=== PATIENT | female | born 1955 | race Caucasian/White ===

== ENCOUNTER 2021-12-19 07:18 | Outpatient (CLI) | payer MEDICARE, SELFPAY ==
[2021-12-19 09:05] LABS: Alanine Aminotransferase 18 U/L (6-35); Albumin Level 4.1 g/dL (3.5-5.1); Alkaline Phosphatase 122 U/L (38-126); Anion Gap 9 mmol/L (8-16); Aspartate Amino Transferase 22 U/L (14-36); Bilirubin,Total 0.6 mg/dL (0.2-1.3); Blood Urea Nitrogen 14 mg/dL (7-17); Calcium 9.2 mg/dL (8.4-10.2); Carbon Dioxide 25 mmol/L (22-30); Chloride 104 mmol/L (98-107); Cholesterol 153 mg/dL (0-200); Creatine Kinase 98 U/L (30-135); Estimated Glomerular Filt Rate 45; Glucose 121 mg/dL (65-110); HDL Direct 36 mg/dL; Potassium 4.1 mmol/L (3.4-5.0); Sodium 138 mmol/L (137-145); Triglycerides 202 mg/dL (<150)
[2021-12-19 09:16] LABS: LDL Cholesterol Direct 72 mg/dL
== END 2021-12-19 07:19 | disposition home or self-care (01) ==
PROVIDERS: PCP Family Medicine; Visit Provider Nurse Practitioner Family
DX: E78.5 Hyperlipidemia, unspecified (principal); Z79.899 Other long term (current) drug therapy
CPT/HCPCS: 36415; 80053; 80061; 82550

== ENCOUNTER 2022-10-13 06:56 | Outpatient (CLI) | payer MEDICARE, SELFPAY ==
[2022-10-13 08:11] LABS: Hematocrit 39.9 % (37.0-47.0); Hemoglobin 12.8 g/dL (12.0-15.0); Mean Corpuscular HGB Conc 32.1 g/dl (32-36); Mean Corpuscular Hemoglobin 27.2 pg (26-34); Mean Corpuscular Volume 84.7 fl (80-100); Mean Platelet Volume 9.4 fl (7.4-10.4); Platelet Count Result 214 k/mm3 (150-375); Red Blood Count 4.71 M/mm3 (4.2-5.4); Red Cell Distribution Width 16.1 % (11.5-14.5); White Blood Count 7.1 K/mm3 (4.5-10.0)
[2022-10-13 08:57] LABS: Alanine Aminotransferase 27 U/L (6-35); Albumin Level 4.3 g/dL (3.5-5.1); Alkaline Phosphatase 112 U/L (38-126); Anion Gap 8 mmol/L (8-16); Aspartate Amino Transferase 28 U/L (14-36); Bilirubin,Total 0.8 mg/dL (0.2-1.3); Blood Urea Nitrogen 12 mg/dL (7-17); Calcium 9.3 mg/dL (8.4-10.2); Carbon Dioxide 30 mmol/L (22-30); Chloride 103 mmol/L (98-107); Cholesterol 169 mg/dL (0-200); Estimated Glomerular Filt Rate 35; Glucose 115 mg/dL (65-110); HDL Direct 39 mg/dL; LDL Cholesterol Direct 85 mg/dL; Potassium 4.5 mmol/L (3.4-5.0); Sodium 141 mmol/L (137-145); Triglycerides 284 mg/dL (<150)
[2022-10-13 09:34] LABS: Hemoglobin A1C 5.9 % (<5.7)
[2022-10-13 09:37] LABS: Vitamin D 25 Hydroxy 61.3 ng/mL
== END 2022-10-13 06:57 | disposition home or self-care (01) ==
LOC: ANHLAB 06:57
PROVIDERS: PCP Family Medicine; Visit Provider Nurse Practitioner Family
DX: E78.5 Hyperlipidemia, unspecified (principal); E55.9 Vitamin D deficiency, unspecified; Z79.899 Other long term (current) drug therapy; N28.9 Disorder of kidney and ureter, unspecified; I10 Essential (primary) hypertension; R73.09 Other abnormal glucose; R53.83 Other fatigue; Z13.29 Encounter for screening for other suspected endocrine disorder; R20.0 Anesthesia of skin; R20.2 Paresthesia of skin
CPT/HCPCS: 36415; 80053; 80061; 82306; 82607; 83036; 84443; 85027

== ENCOUNTER 2022-11-16 08:39 | Outpatient (CLI) | payer MEDICARE, SELFPAY ==
[2022-11-16 09:25] LABS: Anion Gap 7 mmol/L (8-16); Blood Urea Nitrogen 17 mg/dL (7-17); Calcium 9.1 mg/dL (8.4-10.2); Carbon Dioxide 28 mmol/L (22-30); Chloride 106 mmol/L (98-107); Estimated Glomerular Filt Rate 35; Glucose 109 mg/dL (65-110); Potassium 3.6 mmol/L (3.4-5.0); Sodium 141 mmol/L (137-145)
== END 2022-11-16 08:40 | disposition home or self-care (01) ==
PROVIDERS: PCP Family Medicine; Visit Provider Family Medicine
DX: N28.9 Disorder of kidney and ureter, unspecified (principal); E53.8 Deficiency of other specified B group vitamins
CPT/HCPCS: 36415; 80048; 82607

== ENCOUNTER 2022-11-30 07:25 | Outpatient (CLI) | payer MEDICARE, SELFPAY ==
--- NOTE | ~2022-11-30 | CT_ITS ---
CT scan of the Neck Technique: 2.5 mm axial scans were obtained through the neck after intravenous administration of 75 c c Omnipaque 350. Coronal and sagittal reconstructions of the neck were obtained. Dose reduction techn ique was used on this scan by utilizing automated exposure control and iterative reconstruction techn ique. The dose-length product (DLP) was 567.14 mGy-cm. Clinical History: Right parotid tumor, swelling Findings: There is a 2.9 x 2.3 x 3.5 cm ovoid, mildly heterogeneously enhancing mass which is probably in the a nterior, superficial portion of the right parotid gland, just superficial to the right masseter muscl e. No definite pathologic lymphadenopathy seen in the neck otherwise. Parapharyngeal fat preserved bi laterally. Bilateral submandibular glands are unremarkable. Left parotid gland is unremarkable. The pharyngeal mucosal spaces appear normal. No soft tissue masses are seen in the neck. The thyroid gland appears normal. Images of the lung apices reveal no abnormalities. Impression: 2.9 x 2.3 x 3.5 cm mass which is probably in the anterior, superficial right parotid gland, as detail ed above. CT imaging features are relatively nonspecific, and both benign and malignant neoplastic le sions are within the differential diagnosis. Consider tissue sampling and/or resection. Reviewed, dictated and finalized at location . Impression: 2.9 x 2.3 x 3.5 cm mass which is probably in the anterior, superficial right pa rotid gland, as detailed above. CT imaging features are relatively nonspecific, and both benign and malignant neoplastic lesions are within the differential d iagnosis. Consider tissue sampling and/or resection.
[2022-11-30 07:47] LABS: Estimated Glomerular Filt Rate 33
== END 2022-11-30 07:26 | disposition home or self-care (01) ==
LOC: CHSIMG 07:27
PROVIDERS: PCP Family Medicine; Visit Provider Otolaryngology
DX: K11.8 Other diseases of salivary glands (principal)
CPT/HCPCS: 70491; Q9967

== ENCOUNTER 2023-07-21 14:45 | Emergency (ER) | payer MEDICARE, SELFPAY ==
[2023-07-21] VITALS (8 sets, daily range): BP systolic 121–156; BP diastolic 71–92; PULSE 83–90; RESP 12–20; TEMP 36.6–36.7; O2SAT 94–98
--- NOTE | ~2023-07-21 | XR_ITS ---
EXAMINATION: XR chest 2V DATE: 07/21/2023 16:15 INDICATION: Hemoptysis. TECHNIQUE: Frontal and lateral views of the chest were obtained. COMPARISON: None. FINDINGS: There are airspace opacities in right lower lung zone. A calcified right lung nodule is con sistent with old granulomatous disease. No pleural effusion or pneumothorax. The heart size is normal . IMPRESSION: 1. Airspace opacities in right lower lung zone, consistent with atelectasis versus pneumonia. Reviewed, dictated and finalized at location E. OPERATOR IMPRESSION: 1. Airspace opacities in right lower lung zone, consistent with atelectasis rachel mary beth pneumonia.
--- NOTE | ~2023-07-21 | CT_ITS ---
EXAMINATION: CTA chest PE protocol DATE: 07/21/2023 17:04 INDICATION: Hemoptysis. TECHNIQUE: Computed tomography angiography (CTA) of the chest was performed with 100 mL Omnipaque-350 intravenous contrast timed to evaluate the pulmonary arteries. Coronal maximum intensity projection 3D-reconstructions were created by the technologist. Automated exposure control and iterative reconst ruction technique were employed. The dose-length product was 678.86 mGy-cm. COMPARISON: Chest 2 views 07/21/2023 FINDINGS: There is mild emphysema. There is mild atelectasis bilaterally. Calcified right lung nodule s are consistent with old granulomatous disease. There is opacification of some of the right lower lo be bronchi. There is a broncholith in right lower lobe. There are airspace and groundglass opacities in right lung lower lobe. There is right hilar lymphadenopathy. The heart size is normal. No pericard ial effusion. There is no pulmonary embolus. Calcifications in the spleen are consistent with old gra nulomatous disease. There is severe thoracic spondylosis. IMPRESSION: 1. No pulmonary embolus. 2. Right lower lobe pneumonia. 3. Right lower lobe broncholith. 4. Mild emphysema. 5. Right hilar lymphadenopathy, likely reactive. Reviewed, dictated and finalized at location E. [facility] REPRESENTATIVE
--- NOTE | 2023-07-21 15:22 | ED.SOB ---
HPI - SOB/Dyspnea General Chief Complaint: GI Bleed Stated Complaint: coughing up blood Time Seen by Provider: 07/21/23 15:14 Source: patient and family () Mode of arrival: ambulatory Limitations: no limitations History of Present Illness HPI Narrative: (Disregard initial chief complaint; patient denies GI bleeding) Patient presents with concern for hemoptysis. She has been coughing for several days started coughing violently in the she noted she began to cough up blood. It is bright red and then occasionally snot/phlegm. She has a chronic cough. She is not on any anticoagulation. This did occur before approximately 3 months ago she was diagnosed with a pneumonia (based on symptoms) for which she was placed on Augmentin. Based on her symptoms her primary care physician Dr. Kingsley nurse practitioner Lan did prescribe her another round of Augmentin which she started taking today and ordered an outpatient chest x-ray to be performed which patient was planning on doing on Sunday she worked today and tomorrow. Former smoker who quit cigarettes in 2011 and started vaping but quit that 2 years ago. No history DVT PE. She denies chest pain. She has shortness of breath when she coughs but not otherwise or rest. Denies any abdominal pain extremity edema hematemesis, hematuria in hematochezia. She recently stopped taking all of her medications including her allergy medications. Related Data Home Medications Medication Instructions Recorded Confirmed fluticasone propionate 50 1 spray intranasal DAILY 08/30/21 11/27/22 mcg/actuation nasal spray,suspension L.acidoph, paracasei,B. lactis 10 cell PO 12/20/21 11/27/22 billion cell capsule (Digestive Advantage Advanced Probiotic) cholecalciferol (vitamin D3) 125 125 mcg PO DAILY 10/16/22 11/27/22 mcg (5,000 unit) tablet (Vitamin D3) levocetirizine 5 mg tablet (Xyzal) 5 mg PO DAILY 10/16/22 11/27/22 Allergies Allergy/AdvReac Type Severity Reaction Status Date / Time paroxetine [From Paxil] Allergy Unknown Verified 11/27/22 14:39 escitalopram [From Lexapro] AdvReac Intermediate rapid Verified 11/27/22 14:39 heart beat hydrocodone [From Vicodin] AdvReac Mild rapid Verified 11/27/22 14:39 heart beat [facility] Past Medical History Medical History (Updated 07/21/23 @ 17:17 by Abby Singh MD) BMI 36.0-36.9,adult BMI over 35 Congenital branchial cleft cyst High cholesterol Hypertension Low vitamin B12 level Positive colorectal cancer screening using Cologuard test Screen for colon cancer Surgical History Surgical History H/O: hysterectomy Family History Family History Father Allergies Skin cancer Mother Colon cancer Arthritis Sibling , Covid-19 Acute myocardial infarction Sibling Diabetes mellitus Sibling Rheumatoid arthritis Social History Social History (Updated 07/21/23 @ 22:22 by Abby Singh MD) Smoking status: Former smoker (vapes) Tobacco type: e-cigarettes/vaping Second hand tobacco smoke exposure: No Smoking end date: 05/14/11 Alcohol intake: never Alcohol use details: Pt breaks out after drinking alcohol. Substance use: never Substance use type: does not use Lack of Transportation: No Lack of Food: Never True Current Housing: I Have Housing Concerned About Future Housing: No Difficulty Paying Gas/Electric Bills: No Difficulty Paying for Meds: No Currently Unemployed: No Education: Associate Degree Difficulty w/ Childcare or Family Care: No Living arrangements: with family Occupation/Education: occupation Additional occupation/education comments: [employer] Gender identity (if verbalized by the patient): Female Exam Narrative: GENERAL: Well-appearing, well-nourished, and in no acute distress. HEAD: Norm
--- NOTE | 2023-07-21 15:23 | ECG_ITS ---
Measurements Intervals [place] Rate: 83 P: 27 DE: 179 QRS: -54 QRSD: 118 T: 66 QT: 379 QTc: 448 Interpretive Statements SINUS RHYTHM LEFT ANTERIOR FASCICULAR BLOCK BASELINE ARTIFACT- I, II, AVR, AVL, AVF ABNORMAL ECG NO PREVIOUS ECG AVAILABLE FOR COMPARISON Electronically Signed On 07-22-2023 9:38:41 CDT by Jorge Vines D.O.
[2023-07-21 15:36] LABS: Basophils Absolute Auto 0.1 K/mm3 (0.0-0.1); Basophils Percent Auto 0.6 % (0.2-1.2); Eosinophils Absolute Auto 0.3 K/mm3 (0-0.3); Eosinophils Percent Auto 2.5 % (0-4.4); Hematocrit 40.1 % (37.0-47.0); Hemoglobin 12.5 g/dL (12.0-15.0); Immature Granulocyte Absolute 0.05 K/mm3 (0.00-0.031); Immature Granulocyte Percent A 0.5 % (0-0.5); Lymphocytes Absolute Auto 0.79 K/mm3 (0.9-3.2); Lymphocytes Percent Auto 7.8 % (18.3-44.2); Mean Corpuscular HGB Conc 31.2 g/dl (32-36); Mean Corpuscular Volume 83.5 fl (80-100); Monocytes Absolute Auto 0.5 K/mm3 (0.1-0.6); Monocytes Percent Auto 5.1 % (2.6-8.5); Neutrophils Absolute Auto 8.5 K/mm3 (1.3-6.7); Neutrophils Percent Auto 83.5 % (45.5-73.1); Platelet Count Result 214 k/mm3 (150-375); Red Cell Distribution Width 15.9 % (11.5-14.5); White Blood Count 10.1 K/mm3 (4.5-10.0)
[2023-07-21 15:46] LABS: Alanine Aminotransferase 15 U/L (6-35); Albumin Level 4.3 g/dL (3.5-5.1); Alkaline Phosphatase 115 U/L (38-126); Anion Gap 10 mmol/L (8-16); Aspartate Amino Transferase 19 U/L (14-36); Bilirubin,Total 0.6 mg/dL (0.2-1.3); Blood Urea Nitrogen 17 mg/dL (7-17); Calcium 9.7 mg/dL (8.4-10.2); Carbon Dioxide 25 mmol/L (22-30); Chloride 105 mmol/L (98-107); Estimated CRCL calculation 46 ml/min; Estimated Glomerular Filt Rate 41; Glucose 125 mg/dL (65-110); Potassium 3.4 mmol/L (3.4-5.0); Sodium 140 mmol/L (137-145)
[2023-07-21 15:49] LABS: Partial Thromboplastin Time 32.2 SECONDS (22.3-36.8)
[2023-07-21 15:50] LABS: Alveolar/Arterial O2 Gradient 38.9 mmHg; Base Excess ABG 0.7 mEq/l (+/-2.0); Device ROOM AIR; Fractional Inspired Oxygen 21 %; HCO3 ABG 22.4 mEq/l (22.0-26.0); Modified Allen's Test Pass; Oxygen Content ABG 17.2 %vol (16.0-22.0); Oxygen Saturation ABG 96.8 % (95.0-100.0); Oxyhemoglobin 95.2 % THb (90.0-100.0); PCO2 ABG 27.7 mmHg (35.0-45.0); PO2 ABG 77.7 mmHg (80.0-100.0); Site Drawn LEFT RADIAL; Total Hemoglobin 12.8 g/dL (12.0-18.0); pH ABG 7.526 (7.350-7.450)
[2023-07-21 15:54] LABS: NT Pro B Type Natriuretic Pept 42 pg/mL (19.9-100)
[2023-07-21 15:55] LABS: D Dimer 1.02 ug/mL (<0.48)
[2023-07-21 16:12] LABS: Influenza A QL RT-PCR Negative (Negative); Influenza B QL RT-PCR Negative (Negative); RSV RNA, RT-PCR Negative (Negative); SARS-CoV-2 RNA PCR Negative (Negative)
[2023-07-21] MEDS: SODIUM CHLORIDE 0.9% IV 1,000 ML 999 ML IV CONT (17:56)
== END 2023-07-21 18:23 | disposition home or self-care (01) ==
PROVIDERS: Emergency Provider Student in an Organized Health Care Education/Training Program; PCP Family Medicine
DX: I44.4 Left anterior fascicular block (principal); J18.9 Pneumonia, unspecified organism; I10 Essential (primary) hypertension; Z87.891 Personal history of nicotine dependence; Z20.822 Contact with and (suspected) exposure to COVID-19
CPT/HCPCS: 36415; 36600; 71046; 71275; 80053; 82805; 83735; 83880; 85025; 85380; 85610; 85730; 87637; 93005; 99284; J7030; Q9967

== ENCOUNTER 2024-04-22 10:02 | Outpatient (CLI) | payer MEDICARE, SELFPAY ==
--- NOTE | ~2024-04-22 | XR_ITS ---
Clinical Indication: Cough PA and lateral views of the chest: Comparison: 07/21/2023 Findings: Stable calcified medial right basilar pulmonary nodule. The lungs are otherwise clear, with out evidence of focal consolidation or pleural effusion. Cardiomediastinal silhouette is within norm al limits. Bones and soft tissues are unremarkable. Impression: No acute abnormality. Stable large calcified medial right basilar granuloma. Reviewed, dictated and finalized at location . MING COACH OR INSTRUCTOR Impression: No acute abnormality. Stable large calcified medial right basilar granuloma.
[2024-04-22 10:25] LABS: Basophils Absolute Auto 0.06 K/mm3 (0.00-0.10); Basophils Percent Auto 0.6 % (0.0-1.0); Eosinophils Absolute Auto 0.94 K/mm3 (0.02-0.50); Hematocrit 39.2 % (35.0-42.0); Hemoglobin 12.5 g/dL (11.7-13.8); Immature Granulocyte Absolute 0.05 K/mm3 (0.00-0.00); Immature Granulocyte Percent A 0.5 % (0.0-0.0); Lymphocytes Absolute Auto 1.31 K/mm3 (1.10-4.50); Mean Corpuscular HGB Conc 31.9 g/dL (32-36); Mean Corpuscular Hemoglobin 25.9 pg (27.0-31.0); Mean Corpuscular Volume 81.2 fL (78.0-102.0); Mean Platelet Volume 9.5 fl (9.2-11.8); Monocytes Absolute Auto 0.64 K/mm3 (0.10-0.90); Monocytes Percent Auto 6.8 % (2.0-11.0); Neutrophils Absolute Auto 6.38 K/mm3 (1.70-7.20); Neutrophils Percent Auto 68.1 % (50.0-70.0); Platelet Count Result 228 K/mm3 (150-420); Red Blood Count 4.83 M/mm3 (4.20-5.40); Red Cell Distribution Width 15.9 % (11.6-14.4); White Blood Count 9.4 K/mm3 (4.8-10.8)
[2024-04-22 11:30] LABS: Alanine Aminotransferase 26 U/L (14-59); Albumin Level 3.5 g/dL (3.4-5.0); Alkaline Phosphatase 123 U/L (46-116); Anion Gap 10 mmol/L (4-12); Aspartate Amino Transferase 19 U/L (15-37); Bilirubin,Total 0.5 mg/dL (0.00-1.00); Blood Urea Nitrogen 11 mg/dL (7-18); Calcium 9.1 mg/dL (8.5-10.1); Carbon Dioxide 29 mmol/L (21-32); Chloride 104 mmol/L (98-108); Cholesterol 164 mg/dL (0-200); Estimated Glomerular Filt Rate 38; Glucose 101 mg/dL (70-99); HDL Direct 45 mg/dL (40-60); LDL Cholesterol Calculated 67 mg/dL (<130); Osmolality Calculated 295 mOsm/kg (285-295); Sodium 143 mmol/L (136-145); Total Protein 7.3 g/dL (6.4-8.2); Triglycerides 262 mg/dL (0-150)
[2024-04-22 11:31] LABS: Thyroid Stimulating Hormone Reflex 0.74 u/IU/mL (0.36-3.74)
[2024-04-25 12:58] LABS: Vitamin D 1,25 (OH)2 Total 47 pg/mL (18-72); Vitamin D2 1,25 (OH)2 <8 pg/mL; Vitamin D3 1,25 (OH)2 47 pg/mL
== END 2024-04-22 10:03 | disposition home or self-care (01) ==
LOC: CHSLAB 10:03
PROVIDERS: PCP Family Medicine; Visit Provider Family Medicine
DX: E03.9 Hypothyroidism, unspecified (principal); Z13.29 Encounter for screening for other suspected endocrine disorder; E55.9 Vitamin D deficiency, unspecified; J43.9 Emphysema, unspecified; R91.8 Other nonspecific abnormal finding of lung field
CPT/HCPCS: 36415; 71046; 80053; 80061; 82652; 84443; 85025

== ENCOUNTER 2024-05-02 11:23 | Outpatient (CLI) | payer MEDICARE, SELFPAY ==
[2024-05-02 12:10] LABS: SARS-CoV-2 RNA PCR Negative (Negative)
[2024-05-02 12:17] LABS: Influenza A QL RT-PCR Negative (Negative); Influenza B QL RT-PCR Negative (Negative); RSV RNA, RT-PCR Negative (Negative)
== END 2024-05-02 11:24 | disposition home or self-care (01) ==
LOC: CHSLAB 11:24
PROVIDERS: PCP Family Medicine; Visit Provider Family Medicine
DX: J32.9 Chronic sinusitis, unspecified (principal); Z20.822 Contact with and (suspected) exposure to COVID-19
CPT/HCPCS: 87637

== ENCOUNTER 2024-09-25 10:08 | Outpatient (CLI) | payer MEDICARE, SELFPAY ==
--- NOTE | ~2024-09-25 | XR_ITS ---
XR finger 1st RT min 2V 09/25/2024 10:26 Indication: Right first finger pain Procedure: 3 views right first finger Comparison: No prior studies for comparison. Findings: There is polyarticular osteoarthritis of the first digit including the carpometacarpal join t. No fracture or traumatic malalignment. No erosive changes. No focal soft tissue abnormality. 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 Reviewed, dictated and finalized at location A. 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
--- OUTSIDE RECORDS SUMMARY | 2024-09-25 10:14 | XMS_ITS | Clinical Summary ---
Author Organization [facility] Address [address] [place] [address] Care Team Providers Care Rigging Helper Name Role Phone Yuan Jimenez MD Primary Care Provider [phone] Source Comments [facility],non-owned Affiliates and Associated Physician Practices is amultiple site organization consisting of ambulatory clinics and hospital sitesin [place], [place], [place] and [place]. This disclosure is being madepursuant to the Care Everywhere program and may not contain all information available regarding this patient. Last updated 18.[facility] Allergies Active Allergy Reactions Criticality Noted Date Comments Alcohol Rash Medium 12/11/2022 All Alcohol drink products give her a rash Chlorhexidine Itching Medium 12/25/2022 Escitalopram Headache 12/06/2022 Hydrocodone-Acetaminophe n Itching,Palpitations High 12/06/2022 Paroxetine Itching 12/06/2022 Medications * Be aware that medications may not be up to date on this document. Alwaysverify current medications with the patient. atorvastatin (Lipitor) 20 MG tablet Take 1 (one) tablet by mouth once daily 3 Active BinaxNOW COVID-19 Ag Home Test KIT TEST DIRECTED TODAY 3 Active triamcinolone acetonide (Kenalog) 0.1 % ointment Apply 1 Application to affected area as needed 3 Active Probiotic Product (Probiotic-10 Ultimate) CAPS Take 1 capsule by mouth once daily Active Cholecalcifero l (Vitamin D3) 1.25 MG (87923 UT) TABS Take 1 (one) tablet by mouth once daily Active loratadine (Claritin) 10 MG tablet Active acetaminophen (Tylenol) 325 MG tablet Take 2 (two) tablets by mouth every 6 hours as needed for Fever or Pain Maximum allowable Acetaminophen amount = 4 Grams (4000 mg) / 24 hours. 60 tablet 1 3 Active Additional Information Patient taking differently: 500 mgOral2 TIMES DAILY, Maximum allowable Acetaminophen amount = 4 Grams (4000 mg) / 24 hours., Reported on 01/10/2023 oxyCODONE, immediate release, (Roxicodone) 5 MG tabletIndicati ons:Parotid neoplasm Take 1 (one) tablet by mouth every 6 hours as needed for Pain 12 tablet 3 Active Additional Information Patient not taking.Reported on 01/10/2023 ibuprofen (Motrin) 400 MG tablet Take 1 (one) tablet by mouth every 6 hours as needed for Pain 60 tablet 3 Active docusate sodium (Colace) 100 MG capsule Take 1 (one) capsule by mouth 2 times daily as needed for Constipation (If experiencing constipation while on narcotics) 30 capsule 3 Active Additional Information Patient not taking.Reported on 01/10/2023 Active Problems No known active problems Resolved Problems Problem Noted Date Diagnosed Date Resolved Date Parotid neoplasm 12/25/2022 02/09/2023 Immunizations Immunization Administration Dates Next Due INFLUENZA VACCINE 01/27/2023 Social History Tobacco Use Types Packs/Day Years Used Date Smoking Tobacco: Former Cigarettes 1 38 1 974 - 2012 Smokeless Tobacco: Never Tobacco Cessation:Counseling Given: Not Answered Alcohol Use Standard Drinks/Week Comments Not Currently 0 (1 standard drink = 0.6 oz pur e alcohol) Allergic to ETOH Comments Unknown Sex and Gender Information Value Date Recorded Sex Assigned at Female 12/11/2022 3:23 PM CDT Legal Sex Female 10:33 AM CDT Gender Identity Female 12/11/2022 3:23 PM CDT Sexual Orientation Straight 12/11/2022 3: 23 PM CDT Last Filed Vital Signs Vital Sign Reading Time Taken Comments Blood Pressure 149/90 02/09/2023 10:22 AM CDT Pulse 74 02/09/2023 10:22 AM CDT Temperature 36.8 C (98.2 F) 12/26/2022 8:10 AM CDT Respiratory Rate 18 12/26/2022 3:56 AM CDT Oxygen Saturation 93% 12/26/2022 8:10 AM CDT Inhaled Oxygen Concentration - - Weight 106.6 kg (235 lb) 02/09/2023 10:22 AM CDT Height 170.2 cm (5' 7 ) 02/09/2023 10:22 AM CDT Body Mass Index 36.81 02/09/2023 10:22 AM CDT Plan of Treatment Health Maintenance Due Date Last Done Comments BONE DENSITY TESTING 1955 COLOGUARD (AGES 45-75) - COL ON CA SCREENING 1956 COLON MONITORING 1956 COLONOSCOPY - COLON CA SCREENING 1956 CT COLONOGRAPHY - COLON CA SCREENING 1955 Colorectal Cancer Screening 1955 FIT - COLON CA SCREENING 1956 FLEX SIG - COLON CA SCREENING 1956 MAMMOGRAM 1956 HEPATITIS C SCREENING 04/03/1974 DTAP/TDAP/TD VACCINES (1 - Tdap) 1975 LUNG CANCER SCREENING 2006 PNEUMOCOCCAL VACCINE 50+ (1 of 1 - PCV) 2006 ZOSTER VACCINE (1 of 2) 2006 COVID-19 VACCINE ( - 2023-2 5 season) 2024 DEPRESSION SCREENING 05/14/2024 MEDICARE AWV CALENDAR YEAR 2024 INFLUENZA VACCINE (Season Ended) 2025 01/28/20 SCREENING FOR DIABETES 12/11/2025 12/11/2022 Respiratory Syncytial Virus (RSV) Vaccine Pt: or over 60 yrs (1 - 1-dose 75+ series) 2031 HEPATITIS B VACCINE Aged Out No longe r eligible based on patient's age to complete this topic HIB VACCINE Aged Out No longer eligi ble based on patient's age to complete this topic HPV VACCINE Aged Out No longer eligi ble based on patient's age to complete this topic MENINGOCOCCAL (Group B) VACC INE SHARED DECISION-MAKING Aged Out No longer eligibl e based on patient's age to complete this topic MENINGOCOCCAL GROUPS A/C/Y/W VACCINE Aged Out No longer eligible b ased on patient's age to complete this topic Procedures Procedure Name Priority Date/Time Associated Diagnosis Comments COMPREHENSIVE METABOLIC PANEL Routine 12/11/2022 12:14 PM CDT Preoperative examination from Last 3 Months or Most Recently Relevant to Health Maintenance Results * (ABNORMAL) COMPREHENSIVE METABOLIC PANEL (12/11/2022 12:14 PM CDT) BUN 14 7 - 26 mg/dL 12/11/2022 1:30 PM [facility] Creatinine 1.40(H) 0.56 - 0.96 mg/dL 12/11/2022 1:30 PM [facility] Sodium 140 136 - 145 mmol/L 12/11/2022 1:30 PM [facility] Potassium 4.1 3.5 - 4.5 mmol/L 12/11/2022 1:30 PM [facility] Chloride 105 98 - 107 mmol/L 12/11/2022 1:30 PM [facility] CO2 27 22 - 29 mmol/L 12/11/2022 1:30 PM [facility] Glucose 81 70 - 115 mg/dL 12/11/2022 1:30 PM [facility] Calcium 10.1 8.4 - 10.2 mg/dL 12/11/2022 1:30 PM [facility] Protein Total 7.8 6.0 - 8.3 g/dL 12/11/2022 1:30 PM [facility] Albumin 3.6 3.4 - 5.0 g/dL 12/11/2022 1:30 PM [facility] Bilirubin Total 0.6 0.2 - 1.2 mg/dL 12/11/2022 1:30 PM [facility] Alkaline Phosphatase 106 40 - 150 U/L 12/11/2022 1:30 PM [facility] ALT 19 5 - 55 U/L 12/11/2022 1:30 PM [facility] AST 17 5 - 34 U/L 12/11/2022 1:30 PM [facility] Anion Gap 12 8 - 18 12/11/2022 1:30 PM CDT [facility] BUN/Creatinine Ratio 10 7 - 23 12/11/2022 1:30 PM CDT [facility] Osmolality Calculated 290 270 - 300 mOsm/kg 12/11/2022 1:30 PM CDT [facility] Albumin/Globulin Ratio 0.9(L) 1.1 - 2.3 12/11/2022 1:30 PM CDT [facility] eGFR by CKD-EPI 41(L) >=90 mL/min/1.7 3 m2 12/11/2022 1:30 PM CDT [facility] Blood BLOOD SPECIMEN / Unknown Lab Venipuncture / Unknown 12/11/2022 12:14 PM CDT 12/11/2022 1:04 PM CDT us Claude Abel MD LAB - CHEMISTRY ORDERABLES Final Result [facility] [address] [place] [address], [facility] [phone] from Last 3 Months or Most Recently Relevant to Health Maintenance Insurance [facility] MANAGED MEDICARE ADV Advance Directives * Full Code (Latest Code Status on File) Date Activated Date Inactivated Comments 12/25/2022 6:56 PM 12/26/2022 12:19 PM Care Teams Rigging Helper Relationship Specialty Start Date End Date Yuan Jimenez MD [address] [place] [address] PCP - General Family Medicine 12/04/22
--- OUTSIDE RECORDS SUMMARY | 2024-09-25 10:14 | XMS_ITS | Clinical Summary ---
Author Organization [facility] Address [address] [place] [address] Care Team Providers Care Roofer Applicator Name Role Phone Yuan Jimenez MD Primary Care Provider [phone] Allergies Active Allergy Reactions Criticality Noted Date Comments Alcohol Rash Medium 12/11/2022 All Alcohol drink products give her a rash Chlorhexidine Itching Medium 12/25/2022 Hydrocodone-Acetaminoph en Itching,Palpitations High 12/06/2022 Escitalopram Palpitations Low 08/23/2023 Paroxetine Itching 12/06/2022 Medications atorvastatin (LIPITOR) 20 MG tablet Take 1 tablet (20 mg total) by mouth nightly at bedtime. Active albuterol sulfate HFA 108 (90 Base) MCG/ACT inhaler Inhale 2 puffs into the lungs every 6 (six) hours as needed. 03/01/2023 Active cyclobenzaprine (FLEXERIL) 5 MG tablet Take 1 tablet (5 mg total) by mouth 2 (two) times daily as needed. 05/15/2023 Active sertraline (ZOLOFT) 100 MG tablet Take 1 tablet (100 mg total) by mouth daily. 04/17/2023 Active Active Problems No known active problems Social History Tobacco Use Types Packs/Day Years Used Date Smoking Tobacco: Never Smokeless Tobacco: Never Tobacco Cessation:Counseling Given: Not Answered Alcohol Use Standard Drinks/Week Comments Never 0 (1 standard drink = 0.6 oz pur e alcohol) Comments No Sex and Gender Information Value Date Recorded Sex Assigned at Not on file Legal Sex Female 5:58 PM CHEMIST HELPER Gender Identity Not on file Sexual Orientation Not on file Last Filed Vital Signs Vital Sign Reading Time Taken Comments Blood Pressure 147/69 09/26/2023 11:09 AM CDT Pulse 73 09/26/2023 11:09 AM CDT Temperature 36.2 C (97.1 F) 09/26/2023 11:09 AM CDT Respiratory Rate 16 09/26/2023 11:09 AM CDT Oxygen Saturation 97% 09/26/2023 11:09 AM CDT Inhaled Oxygen Concentration - - Weight 105.2 kg (232 lb) 09/19/2023 1:06 PM CDT Height 170.2 cm (5' 7 ) 09/19/2023 1:06 PM CDT Body Mass Index 36.34 09/19/2023 1:06 PM CDT Plan of Treatment Health Maintenance Due Date Last Done Comments Colorectal Cancer Screening Colonoscopy (10 Years) 1956 Hepatitis C 1974 DTaP, Tdap and Td Vaccines (1 - Tdap) 1975 Mammogram Screening 1996 Annual Medicare Wellness Visit 2021 Dexa Scan (General) 2021 COVID-19 Vaccine ( season) 2024 02/16/2023, 02/20/2022, 02/13/2021, Additional history exists Pneumococcal Vaccine: 50+ Years Completed 01/27/2023 Zoster Vaccines Completed 04/09/2023, 01/27/2023 RSV Immunization or 60+ Years Completed 05/11/2023 Meningococcal B Vaccine Aged Out No l onger eligible based on patient's age to complete this topic Meningococcal Vaccine Aged Out No ezequiel char eligible based on patient's age to complete this topic RSV Immunizations Under 20 Months Aged Out No longer eligible based on patient's age to complete this topic Medical Devices Implanted Type Area Electronics Maintenance Technician Device Identifier Shelf Expiration Date Model / Serial / Lot Tecnis Simplicity Delivery System Implanted:Qty: 1 on 08/29/2023 by Loren Devine MD at [facility] Right: Eye [employer] 06/20/2025 DCB00 / [id number] / [id number] Technis Simplicity Delivery System Implanted:Qty: 1 on 09/26/2023 by Loren Devine MD at [facility] Left: Eye [employer] 01/25/2026 DCB00 / [id number] / [id number] Insurance [facility] Care Teams Roofer Applicator Relationship Specialty Start Date End Date Yuan Jimenez MD [address] [place] [address] PCP - General FAMILY PRACTICE 08/29/23
--- OUTSIDE RECORDS SUMMARY | 2024-09-25 10:14 | XMS_ITS | Encounter Summary ---
Author Organization [facility] Address [address] [place] [address] Care Team Providers Care Assistant Press Operator Offset Name Role Phone Yuan Jimenez MD Primary Care Provider [phone] Encounter Details Date Type Department Care Team (Late st Contact Info) Description 10/19/2018 Abstract [facility]FL CONVERSION [address] [place] [address] , Generic Conversion, Social History Tobacco Use Types Packs/Day Years Used Date Smoking Tobacco: Never Assessed Comments Unknown Sex and Gender Information Value Date Recorded Sex Assigned at Not on file 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
== END 2024-09-25 10:09 | disposition home or self-care (01) ==
LOC: CHSIMG 10:12
PROVIDERS: PCP Family Medicine; Visit Provider Family Medicine
DX: M19.041 Primary osteoarthritis, right hand (principal)
CPT/HCPCS: 73140

== ENCOUNTER 2024-11-15 07:01 | Emergency (ER) | payer MEDICARE, SELFPAY ==
[2024-11-15] VITALS (7 sets, daily range): BP systolic 106–139; BP diastolic 58–72; PULSE 75–88; RESP 17–20; TEMP 36.6–37.1; O2SAT 88–92
--- NOTE | ~2024-11-15 | CT_ITS ---
EXAMINATION: CTA chest PE protocol DATE: 11/15/2024 09:10 CDT INDICATION: Cough, fever and right-sided chest pain TECHNIQUE: Computed tomographic angiography (CTA) of the chest was performed with 100 mL Omnipaque-35 0 intravenous contrast. The dose-length product was 746.32 mGy-cm. Maximum intensity projection 3D-re constructions of the aorta and other arteries were constructed by the technologist on a separate work station. COMPARISON: 07/21/2023 FINDINGS/OBSERVATIONS: PULMONARY ARTERIES: No filling defect is identified within the main or proximal pulmonary artery. The main pulmonary artery is not enlarged. THORACIC AORTA: No aneurysmal dilatation or dissection is present. The great vessels are intact LUNGS: Moderate right-sided pleural effusion with adjacent compressive atelectasis. Bulky calcification within the right lung base, unchanged from prior. Left basilar atelectasis. No discrete consolidation is appreciated. MEDIASTINUM: No morphologically suspicious or pathologically enlarged lymph nodes are identified with in the mediastinum or bilateral axilla. Decrease in size of the right hilar lymph node when compared with previous examination. BONES OF THE CHEST: No acute fracture. No significant degenerative disease. No lytic or blastic lesions. HEART: The heart is of normal size, without pericardial effusion. IMPRESSION: No pulmonary embolus. No thoracic aortic dissection. Moderate right-sided pleural effusion with adjacent compressive atelectasis and a bulky calcification within the right lung base. Left basilar atelectasis without discrete consolidation detected bilaterally. Reviewed, dictated and finalized at location A.
--- NOTE | ~2024-11-15 | XR_ITS ---
CHEST RADIOGRAPH CLINICAL HISTORY: cough, fever, right chest pain . COMPARISON: 04/22/2024 TECHNIQUE: Single portable view of the chest. FINDINGS Small hiatal hernia. The remainder of the cardiomediastinal silhouette is enlarged, unchanged, and otherwise unremarkable. Moderate right and small left-sided pleural effusion. Increased interstitial markings are identified bilaterally, findings suggesting moderate pulmonary va scular congestion. The remainder the lungs are clear. IMPRESSION: Moderate pulmonary vascular congestion with a moderate right and small left-sided pleural effusion. Reviewed, dictated and finalized at location A. IMPRESSION: Moderate pulmonary vascular congestion with a moderate right and small left-shruthi ed pleural effusion.
--- NOTE | 2024-11-15 07:05 | ED.CHESTPAIN ---
HPI - Chest Pain General Chief Complaint: Upper Respiratory Infection Stated Complaint: rt. side pain Time Seen by Provider: 11/15/24 07:05 Source: patient Mode of arrival: ambulatory Limitations: no limitations History of Present Illness HPI narrative: 69-year-old female, smoker with a history of hypertension, dyslipidemia, CKD, COPD presents to the ED with a 2 day history of -- right lower chest wall pain which is made worse by deep breathing and coughing -- cough with purulent sputum no shortness of breath no nausea/vomiting / abdominal pain / diarrhea. MD complaint: chest pain Onset (ago): day(s) ( Two days) Timing of current episode: episodic Prior episodes: No Pain location: right chest Pain radiation: none Quality: sharp Relieving factors: nothing and rest Exacerbating factors: inspiration Associated symptoms: cough Treatment prior to arrival: none Risk Factors Coronary artery disease risk factors: smoking history, hyperlipidemia and hypertension Thoracic aortic dissection risk factors: longstanding hypertension Related Data Home Medications ?Medication ?Instructions ?Recorded ?Confirmed ?Last Taken ?Type fluticasone propionate 50 1 spray intranasal DAILY 08/30/21 09/25/24 Unknown History mcg/actuation nasal spray,suspension L.acidoph,paracasei,B.animalis 10 cell PO 12/20/21 09/25/24 Unknown History billion cell capsule (Digestive Advantage Advanced Probiotic) levocetirizine 5 mg tablet (Xyzal) 5 mg PO DAILY 10/16/22 09/25/24 Unknown History Allergies Allergy/AdvReac Type Severity Reaction Status Date / Time paroxetine (From Paxil) Allergy Unknown Verified 09/25/24 09:45 escitalopram (From Lexapro) AdvReac Intermediate rapid Verified 09/25/24 09:45 heart beat hydrocodone (From Vicodin) AdvReac Mild rapid Verified 09/25/24 09:45 heart beat Review of Systems Review of Systems: All systems reviewed & are unremarkable except as noted in HPI and below Constitutional: Constitutional: Reports as per HPI and Reports no additional constitutional complaints Eyes: Eyes: Reports as per HPI and Reports no additional eye complaints ENT: Reports system reviewed and no additional complaints, except as documented and Reports as per HPI Cardiovascular: Cardiovascular: Reports as per HPI, Reports no additional cardiovascular complaints and Reports chest pain Respiratory: Respiratory: Reports as per HPI, Reports no additional respiratory complaints and Reports cough Gastrointestinal: Gastrointestinal: Reports as per HPI and Reports no additional gastrointestinal complaints Genitourinary: Genitourinary: Reports no additional female genitourinary complaints and Reports as per HPI Musculoskeletal: Musculoskeletal: Reports no additional musculoskeletal complaints and Reports as per HPI Integumentary/Breasts: Skin/Breast: Reports system reviewed and no additional complaints, except as docu and Reports as per HPI Neurologic: Reports system reviewed and no additional complaints, except as documented and Reports as per HPI Psychiatric: Psychiatric: Reports no additional psychiatric complaints and Reports as per HPI Endocrine: Endocrine: Reports no additional endocrine complaints and Reports as per HPI Hematologic/Lymphatic: Hematologic/Lymphatic: Reports no additional hematologic/lymphatic complaints and Reports as per HPI Allergic/Immunologic: Allergic/Immunologic: Reports no additional allergic/immunologic complaints and Reports as per HPI [facility] Past Medical History Medical History Positive colorectal cancer screening using Cologuard test Screen for colon cancer Low vitamin B12 level BMI 36.0-36.9,adult 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 Substance use: never Substance use type: does not use Lack of Transportation: No Lack of Food: Never True Current Housing: I Have Housing Concerned About Future Housing: No Difficulty Paying Gas/Electric Bills: No Difficulty Paying for Meds: No Currently Unemployed: No Education: Associate Degree Difficulty w/ Childcare or Family Care: No Living arrangements: with family Occupation/Education: occupation Additional occupation/education comments: [employer] Gender identity (if verbalized by the patient): Female Exam Narrative: afebrile. Oxygen saturation 92% on room. Const: General: no acute distress Nutritional Appearance: well nourished Orientation/consciousness: patient oriented x3 Limitations: no limitations HENMT: Head: normal to inspection Ears: external ears normal Face/Nose/Sinus: Normal external nose present Face and sinus: normal facial exam Mouth: Yes Normal oral and palatal mucosa present Throat: posterior oropharynx normal Eyes: Conjunctivae: conjunctivae normal Pupils: Equal, round and reactive pupils present EOM: EOMs intact bilaterally Direct Ophthalmoscopy: no photophobia Neck: Neck: normal visual inspection, no lymphadenopathy and no meningeal signs Chest: Chest palpation & inspection: normal inspection of the chest Resp: Effort & Inspection: normal respiratory effort Auscultation: diminished lung sounds Other: Right basilar rales. Cardio: Rate: regular rate Rhythm: regular rhythm Other: Systolic murmur at the aortic area GI: GI Palp: Yes Soft to palpation Auscultation: normal bowel sounds Other: epigastric tenderness without any rigidity /rebound. : General: Yes no CVA tenderness Back/Spine/Pelvis: Back: no CVA tenderness Skin: General skin exam: normal color Rashes: no rashes Wounds: no wounds Neuro: General: patient oriented x3, moves all extremities, no meningeal signs, no focal motor deficits and CN's II-XI intact bilaterally Cranial nerves: Yes Nystagmus not present Speech: normal speech Gait exam (Neuro): Normal gait present Extrem: General: normal to inspection and no clubbing, cyanosis or edema Psych: Mental Status: mental status grossly normal Affect: normal affect Attitude: cooperative Course Course Emergency Course: Right pleuritic chest pain-- patient is afebrile but has an elevated white cell count. Patient has cough with mucopurulent sputum. Chest x-ray revealed bilateral effusions with right atelectasis. CTA of the chest was negative for PE and revealed right effusion with compressive atelectasis and calcification the right lung base. Patient had a proBNP of 260. Patient has normal troponin. EKG is unremarkable. No prior history of coronary artery disease. In view of the pleuritic chest pain, cough with mucopurulent sputum and right lower lobe infiltrate/atelectasis would treat as right lower lobe pneumonia. Would treat with Zithromax and Augmentin. CKD-- patient has a BUN/creatinine of 11/1.4. Vital Signs Vital signs: Vital Signs Oxygen Delivery Room Air 11/15/24 07:01 Temperature 36.6 C 11/15/24 07:05 Pulse Rate 88 11/15/24 07:05 Respiratory Rate 20 11/15/24 07:05 Blood Pressure 139/72 11/15/24 07:05 Pulse Oximetry 92 11/15/24 07:05 Oxygen Delivery Room Air 11/15/24 07:05 MDM - Chest Pain MDM Narrative Medical decision making narrative: Pleurisy pneumonia CKD Differential Diagnosis Differential diagnosis: Likely fracture of rib and pneumothorax Medical Records Data Attestation: I reviewed the patient's medical records. Lab Data Attestation: I reviewed the patient's lab results. 11/15/24 07:31 11/15/24 07:32 Labs: Lab Results 11/15/24 11/15/24 11/15/24 Range/Units 07:13 07:31 07:32 WBC 13.0 H (4.8-10.8) K/mm3 RBC 4.50 (4.20-5.40) M/mm3 Hgb 11.5 L (11.7-13.8) g/dL Hct 36.8 (35.0-42.0) % MCV 81.8 (78.0-102.0) fL MCH 25.6 L (27.0-31.0) pg MCHC 31.3 L (32-36) g/dL RDW 16.6 H (11.6-14.4) % Plt Count 274 (150-420) K/mm3 MPV 9.4 (9.2-11.8) fl Immature Gran % (Auto) 0.8 H (0.0-0.0) % Neut % (Auto) 86.2 H (50.0-70.0) % Lymph % (Auto) 5.6 L (18.0-42.0) % [place] % (Auto) 5.4 (2.0-11.0) % Eos % (Auto) 1.5 (1.0-6.0) % Baso % (Auto) 0.5 (0.0-1.0) % Lymph # (Auto) 0.72 L (1.10-4.50) K/mm3 [place] # (Auto) 0.70 (0.10-0.90) K/mm3 Eos # (Auto) 0.19 (0.02-0.50) K/mm3 Baso # (Auto) 0.06 (0.00-0.10) K/mm3 Abs Immat Gran (auto) 0.10 H (0.00-0.00) K/mm3 Absolute Neuts (auto) 11.18 H (1.70-7.20) K/mm3 Absolute Nucleated RBC 0.00 (0.00-0.00) K/mm3 Nucleated RBC % 0.0 (0-0.0) % PT 11.6 (9.50-12.1) Seconds INR 1.1 D-Dimer 0.98 H (0.19-0.50) mg/L Sodium 135 L (137-145) mmol/L Potassium 3.6 (3.4-5.0) mmol/L Chloride 103 (98-107) mmol/L Carbon Dioxide 26 (22-30) mmol/L Anion Gap 6 (4-12) mmol/L BUN 11 D (7-17) mg/dL Creatinine 1.40 H (0.7-1.0) mg/dL Estim Creat Clear Calc 43 ml/min Estimated GFR 37 L (59 - ) Glucose 148 H (65-110) mg/dL Calculated Osmolality 282 L (285-295) mOsm/kg Lactic Acid 1.3 (0.4-2.0) mmol/L Calcium 9.0 (8.4-10.2) mg/dL Total Bilirubin 1.2 (0.2-1.3) mg/dL AST 22 (14-36) U/L ALT 17 (6-35) U/L Alkaline Phosphatase 79 (38-126) U/L Total Creatine Kinase 118 (30-135) U/L Troponin I < 0.012 (0.000-0.034) ng/mL NT-Pro-B Natriuret Pep 262 H (19.9-100) pg/mL Total Protein 7.7 (6.3-8.2) g/dL Albumin 4.0 (3.5-5.1) g/dL Lipase 11 L (23-300) U/L Urine Color Light yellow (Yellow) Urine Appearance Clear (Clear) Urine pH 6.0 (5.0-8.0) Ur Specific [place] 1.010 (1.010-1.020) Urine Protein Negative (Negative) Urine Glucose (UA) Negative (Negative) Urine Ketones Negative (Negative) Ur Blood (Man) 1+ H (Negative) Urine Nitrate Positive H (Negative) Urine Bilirubin Negative (Negative) Urine Urobilinogen 0.2 (0.2-1.0) mg/dL Leukocyte Esterase Rfl Trace H (Negative) NEETU/UL Urine RBC 0-2 (0-2) /hpf Urine WBC 4-6 H (0-3) /hpf Ur Squamous Epith Cells Few (Few) /hpf Urine Bacteria Trace (None) /hpf Ur Oval Fat Bodies None (None) /lpf Influenza A (RT-PCR) Negative (Negative) Influenza B (RT-PCR) Negative (Negative) RSV (RT-PCR) Negative (Negative) SARS-CoV-2 RNA (RT-PCR) Negative (Negative) ECG Data EKG #1: ECG completion date: 11/15/24 ECG completion time: 07:29 Interpretation: Normal sinus rhythm. Right bundle-branch block pattern with left anterior hemiblock. No ST elevation. Discharge Plan Discharge Clinical Impression: Pleurisy Pneumonia Qualifiers: Pneumonia type: due to unspecified organism Laterality: right Lung location: lower lobe of lung Qualified Code(s): J18.9 - Pneumonia, unspecified organism CKD (chronic kidney disease) stage 3, GFR 30-59 ml/min Qualifiers: Chronic kidney disease stage 3 subtype: stage 3b (GFR 30-44) Qualified Code(s): N18.32 - Chronic kidney disease, stage 3b Patient Disposition: Home Condition: Stable Instructions: Antibiotic Form, Pleurisy (ED), Chronic Kidney Disease (ED), Community Acquired Pneumonia (ED) Patient Language: Hong [place]er Prescriptions: New amoxicillin-pot clavulanate 875-125 mg tablet 1 tablet PO Q12H Qty: 14 0RF azithromycin [Zithromax] 250 mg tablet 250 mg PO DAILY 4 Days Qty: 4 0RF Rx Instructions: start on day 2 of therapy No Action fluticasone propionate 50 mcg/actuation spray,suspension 1 spray intranasal DAILY Rx Instructions: administer into each nostril Digestive Advantage Advanced 10 billion cell capsule PO levocetirizine [Xyzal] 5 mg tablet 5 mg PO DAILY Breztri Aerosphere 160-9-4.8 mcg/actuation HFA aerosol inhaler 2 inh inhalation BID Qty: 10.7 0RF albuterol sulfate 90 mcg/actuation HFA aerosol inhaler 1 puff inhalation Q4H PRN (Reason: shortness of breath or wheezing) Qty: 8.5 2RF ipratropium bromide 42 mcg (0.06 %) spray,non-aerosol 2 spray intranasal TID Qty: 15 5RF Rx Instructions: administer into each nostril prednisone 10 mg tablet 10 mg PO DIRECTED Qty: 21 0RF Rx Instructions: 6-5-4-3-2-1 atorvastatin 20 mg tablet 20 mg PO DAILY Qty: 90 1RF Follow-up/Referrals: Tanner August DO [Primary Care Provider] - Time of Disposition: 09:40
--- OUTSIDE RECORDS SUMMARY | 2024-11-15 07:05 | XMS_ITS | Clinical Summary ---
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 Gender Identity Not on file Sexual Orientation [...] 1:06 PM CDT Height 170.2 cm (5' 7) 09/19/2023 1:06 PM CDT Body Mass Index [...] this topic Medical Devices Implanted Type Area Wall Mirror Department Supervisor Device Identifier Shelf Expiration Date Model / Serial / Lot Tecnis Simplicity Delivery System Implanted:Qty: 1 on 08/29/2023 by Loren Devine MD at [facility] Right: Eye [employer] 06/20/2025 DCB00 / [id number] / [id number] [employer] Simplicity Delivery System Implanted:Qty: 1 on 09/26/2023 by Loren Devine MD at [facility] Left: Eye [employer] 01/25/2026 DCB00 / [id number] / [id number] Insurance [facility] Care Teams Compliance Intern Relationship Specialty Start Date End Date Yuan Jimenez MD [address] [place] [place] [address] PCP - General FAMILY PRACTICE 08/29/23
--- OUTSIDE RECORDS SUMMARY | 2024-11-15 07:05 | XMS_ITS | Encounter Summary ---
Author Organization [facility] Address [address] [place] [address] Care Team Providers Care Jig Builder Helper Name Role Phone Yuan Jimenez MD Primary Care Provider [phone] Encounter Details Date Type Department Care Team (Late st Contact Info) Description 10/19/2018 Abstract SFL CONVERSION [address] [place] [address] , Generic Conversion, Social History Tobacco Use Types Packs/Day Years Used Date Smoking Tobacco: Never Assessed Comments Unknown Sex and Gender Information Value Date Recorded Sex Assigned at Not on file Legal Sex Female 5:58 PM PSYCHIATRIC NURSE PRACTITIONER Gender Identity Not on file Sexual Orientation Not on file documented as of this encounter Plan of Treatment Not on file documented as of this encounter Visit Diagnoses Not on filedocumented in this encounter Care Teams Jig Builder Helper Relationship Specialty Start Date End Date Yuan Jimenez MD [address] [address] PCP - General FAMILY PRACTICE 08/29/23 documented as of this encounter
--- OUTSIDE RECORDS SUMMARY | 2024-11-15 07:05 | XMS_ITS | Clinical Summary ---
Author Organization [facility] Address [address] [place] [address] Care Team Providers Care Moss Bleacher Name Role Phone Yuan Jimenez MD Primary Care Provider [phone] Source Comments [facility],non-owned Affiliates and Associated Physician Practices is amultiple site organization consisting of ambulatory clinics and hospital sitesin [place], [place], [place] and [place]. This disclosure is being madepursuant to the Care Everywhere program and may not contain all information available regarding this patient. Last updated 18.[facility] Allergies Active Allergy Reactions Criticality Noted Date [...] Active Cholecalcifero l (Vitamin D3) 1.25 MG (78055 UT) TABS Take 1 (one) tablet by [...] 10:22 AM CDT Height 170.2 cm (5' 7) 02/09/2023 10:22 AM CDT Body Mass Index [...] 7 - 26 mg/dL 12/11/2022 1:30 PM [facility] Creatinine 1.40(H) 0.56 - 0.96 mg/dL 12/11/2022 1:30 PM [facility] Sodium 140 136 - 145 mmol/L 12/11/2022 1:30 PM [facility] Potassium 4.1 3.5 - 4.5 mmol/L 12/11/2022 1:30 PM [facility] Chloride 105 98 - 107 mmol/L 12/11/2022 1:30 PM [facility] CO2 27 22 - 29 mmol/L 12/11/2022 1:30 PM [facility] Glucose 81 70 - 115 mg/dL 12/11/2022 1:30 PM [facility] Calcium 10.1 8.4 - 10.2 mg/dL 12/11/2022 1:30 PM [facility] Protein Total 7.8 6.0 - 8.3 g/dL 12/11/2022 1:30 PM [facility] Albumin 3.6 3.4 - 5.0 g/dL 12/11/2022 1:30 PM [facility] Bilirubin Total 0.6 0.2 - 1.2 mg/dL 12/11/2022 1:30 PM [facility] Alkaline Phosphatase 106 40 - 150 U/L 12/11/2022 1:30 PM [facility] ALT 19 5 - 55 U/L 12/11/2022 1:30 PM [facility] AST 17 5 - 34 U/L 12/11/2022 1:30 PM [facility] Anion Gap 12 8 - 18 12/11/2022 1:30 PM CDT [facility] BUN/Creatinine Ratio 10 7 - 23 12/11/2022 1:30 PM CDT [facility] Osmolality Calculated 290 270 - 300 mOsm/kg 12/11/2022 1:30 PM CDT [facility] Albumin/Globulin Ratio 0.9(L) 1.1 - 2.3 12/11/2022 1:30 PM CDT [facility] eGFR by CKD-EPI 41(L) >=90 mL/min/1.7 3 m2 12/11/2022 1:30 PM CDT [facility] Blood BLOOD SPECIMEN / Unknown Lab Venipuncture / Unknown 12/11/2022 12:14 PM CDT 12/11/2022 1:04 PM CDT us Claude Abel MD LAB - CHEMISTRY ORDERABLES Final Result [facility] [address] [place] [address], [facility] [phone] from Last 3 Months or Most Recently Relevant to Health Maintenance Insurance [facility] MANAGED MEDICARE ADV Advance Directives * Full Code (Latest Code Status on File) Date Activated Date Inactivated Comments 12/25/2022 6:56 PM 12/26/2022 12:19 PM Care Teams Moss Bleacher Relationship Specialty Start Date End Date Yuan Jimenez MD [address] [place] [address] PCP - General Family Medicine 12/04/22
--- NOTE | 2024-11-15 07:12 | ECG_ITS ---
Test Date: 2024-11-15 07:29:57 Measurements Intervals [place] Rate: 84 P: 49 MA: 174 QRS: -48 QRSD: 122 T: 63 QT: 369 QTc: 437 Interpretive Statements SINUS RHYTHM RIGHT BUNDLE BRANCH BLOCK [120+ ms QRS DURATION, UPRIGHT V1, 40+ ms S IN I/aVL/V4/V5/V6] LEFT ANTERIOR FASCICULAR BLOCK [QRS AXIS <= -45, QR IN I, RS IN II] POSSIBLE SEPTAL MYOCARDIAL INFARCTION , PROBABLY OLD [30 ms Q WAVE IN V1/V2] No previous ECG available for comparison Electronically Signed On 11-17-2024 22:35:45 CDT by Tyler Combs M.D.
--- NOTE | 2024-11-15 07:32 | PC.NURSE ---
Covid culture sent to lab
[2024-11-15 07:38] LABS: Hematocrit 36.8 % (35.0-42.0); Hemoglobin 11.5 g/dL (11.7-13.8); Immature Granulocyte Percent A 0.8 % (0.0-0.0); Lymphocytes Absolute Auto 0.72 K/mm3 (1.10-4.50); Mean Corpuscular HGB Conc 31.3 g/dL (32-36); Mean Corpuscular Hemoglobin 25.6 pg (27.0-31.0); Mean Corpuscular Volume 81.8 fL (78.0-102.0); Nucleated Red Blood Cells Absolute Auto 0.00 K/mm3 (0.00-0.00); Nucleated Red Blood Cells Perc 0.0 % (0-0.0); Platelet Count Result 274 K/mm3 (150-420); Red Blood Count 4.50 M/mm3 (4.20-5.40); White Blood Count 13.0 K/mm3 (4.8-10.8)
[2024-11-15] MEDS: ONDANSETRON HCL ODT 4 MG TABLET PO (07:45)
[2024-11-15 07:49] LABS: Alanine Aminotransferase 17 U/L (6-35); Albumin Level 4.0 g/dL (3.5-5.1); Alkaline Phosphatase 79 U/L (38-126); Anion Gap 6 mmol/L (4-12); Aspartate Amino Transferase 22 U/L (14-36); Bilirubin,Total 1.2 mg/dL (0.2-1.3); Blood Urea Nitrogen 11 mg/dL (7-17); Calcium 9.0 mg/dL (8.4-10.2); Carbon Dioxide 26 mmol/L (22-30); Chloride 103 mmol/L (98-107); Creatine Kinase 118 U/L (30-135); Estimated CRCL calculation 43 ml/min; Estimated Glomerular Filt Rate 37; Glucose 148 mg/dL (65-110); Lipase 11 U/L (23-300); Osmolality Calculated 282 mOsm/kg (285-295); Potassium 3.6 mmol/L (3.4-5.0); Sodium 135 mmol/L (137-145); Total Protein 7.7 g/dL (6.3-8.2)
[2024-11-15 07:51] LABS: INR 1.1; Prothrombin Time 11.6 Seconds (9.50-12.1)
[2024-11-15 07:58] LABS: Add Urine Microscopic? YES; Appearance Urine Clear (Clear); Glucose Urine UA Negative (Negative); Leukocyte Esterase Ur Trace LEU/UL (Negative); Nitrate Urine Positive (Negative); Specific Grav Ur 1.010 (1.010-1.020)
[2024-11-15 08:00] LABS: NT Pro B Type Natriuretic Pept 262 pg/mL (19.9-100); Troponin I < 0.012 ng/mL (0.000-0.034)
--- OUTSIDE RECORDS SUMMARY | 2024-11-15 08:04 | XMS_ITS | Clinical Summary ---
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 Gender Identity Not on file Sexual Orientation [...] this topic Medical Devices Implanted Type Area Billing Supervisor Device Identifier Shelf Expiration Date Model / Serial / Lot Tecnis Simplicity Delivery System Implanted:Qty: 1 on 08/29/2023 by Loren Devine MD at [facility] Right: Eye [employer] 06/20/2025 DCB00 / [id number] / [id number] [employer] Simplicity Delivery System Implanted:Qty: 1 on 09/26/2023 by Loren Devine MD at [facility] Left: Eye [employer] 01/25/2026 DCB00 / [id number] / [id number] Insurance [facility] Care Teams Film Casting Operator Relationship Specialty Start Date End Date Yuan Jimenez MD [address] [place] [address] PCP - General FAMILY PRACTICE 08/29/23
--- OUTSIDE RECORDS SUMMARY | 2024-11-15 08:04 | XMS_ITS | Encounter Summary ---
Author Organization [facility] Address [address] [place] [address] Care Team Providers Care Healthcare Social Worker Name Role Phone uYan Jimenez MD Primary Care Provider [phone] Encounter Details Date Type Department Care Team (Late st Contact Info) Description 10/19/2018 Abstract SFL CONVERSION [address] [place] [address] , Generic Conversion, Social History Tobacco Use Types Packs/Day Years Used Date Smoking Tobacco: Never Assessed Comments Unknown Sex and Gender Information Value Date Recorded Sex Assigned at Not on file 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
--- OUTSIDE RECORDS SUMMARY | 2024-11-15 08:04 | XMS_ITS | Clinical Summary ---
Author Organization [facility] Address [address] [place] [address] Care Team Providers Care Apparel Fashion Designer Name Role Phone Yuan Jimenez MD Primary Care Provider [phone] Source Comments [facility],non-owned Affiliates and Associated Physician Practices is amultiple site organization consisting of ambulatory clinics and hospital sitesin [place], [place], [place] and [place]. This disclosure is being madepursuant to the Care Everywhere program and may not contain all information available regarding this patient. Last updated 18.[facility] Allergies Active Allergy Reactions Criticality Noted Date [...] Active Cholecalcifero l (Vitamin D3) 1.25 MG (44422 UT) TABS Take 1 (one) tablet by [...] 7 - 23 12/11/2022 1:30 PM CDT [facility] Osmolality Calculated 290 270 - 300 mOsm/kg 12/11/2022 1:30 PM CDT [facility] Albumin/Globulin Ratio 0.9(L) 1.1 - 2.3 12/11/2022 1:30 PM CDT [facility] eGFR by CKD-EPI 41(L) >=90 mL/min/1.7 3 m2 12/11/2022 1:30 PM CDT [facility] Blood BLOOD SPECIMEN / Unknown Lab Venipuncture / Unknown 12/11/2022 12:14 PM CDT 12/11/2022 1:04 PM CDT us Claude Abel MD LAB - CHEMISTRY ORDERABLES Final Result [facility] [address] [place] [address], [facility] [phone] from Last 3 Months or Most Recently Relevant to Health Maintenance Insurance [facility] MANAGED MEDICARE ADV Advance Directives * Full Code (Latest Code Status on File) Date Activated Date Inactivated Comments 12/25/2022 6:56 PM 12/26/2022 12:19 PM Care Teams Apparel Fashion Designer Relationship Specialty Start Date End Date Yuan Jimenez MD [address] [place] [address] PCP - General Family Medicine 12/04/22
[2024-11-15] MEDS: AZITHROMYCIN 500 MG/NS 250 ML 500 MG/250 ML BAG 250 MG IVPB (08:19)
[2024-11-15] MEDS: LACTATED RINGERS 1,000 ML 999 ML IV CONT (08:21)
[2024-11-15 08:24] LABS: Influenza A QL RT-PCR Negative (Negative); Influenza B QL RT-PCR Negative (Negative); SARS-CoV-2 RNA PCR Negative (Negative)
[2024-11-15 08:25] LABS: RSV RNA, RT-PCR Negative (Negative)
--- NOTE | 2024-11-16 13:42 | PC.NURSE ---
PRELIMINARY BLOOD CULTURE REPORT; NO GROWTH TO DATE.
--- NOTE | 2024-11-17 16:24 | PC.NURSE ---
PRELIMINARY BLOOD CULTURE REVIEWED ISOLATED STAPHYLOCOCCUS EPIDERMIDIS
--- NOTE | 2024-11-17 16:25 | PC.NURSE ---
Addendum entered by Isidra Barnes RN 11/17/24 16:26: ESCHERICHIA COLI Original Note: URINE CLEAN CATCH PRELIMINARY [id number]
--- NOTE | 2024-11-18 13:13 | PC.NURSE ---
urine, final noted e-coli, rx augmentin. no change needed.
--- NOTE | 2024-11-21 12:05 | PC.NURSE ---
FINAL BLOOD CULTURE REPORT; NO GROWTH IN 5 DAYS.
--- NOTE | 2024-11-21 12:07 | PC.NURSE ---
2ND FINAL BLOOD CULTURE REPORT; CONTAMINATED SPECIMEN, STAPHYLOCOCCUS EPIDERMIDIS, STAPHYLOCOCCUS HOMINIS, NO NEED TO TREAT PER DR. LEMONS
--- NOTE | 2024-11-26 13:18 | PC.NURSE ---
final blood cultures x2 reviewed. staph epidermidis and staph hominis isolated. pmd, dr alfredo notified of culture report. no nre orders received
== END 2024-11-15 10:00 | disposition home or self-care (01) ==
PROVIDERS: Emergency Provider Internal Medicine Critical Care Medicine; PCP Family Medicine
DX: R09.1 Pleurisy (principal); J18.9 Pneumonia, unspecified organism; I12.9 Hypertensive chronic kidney disease with stage 1 through stage 4 chronic kidney disease, or unspecified chronic kidney disease; N18.32 Chronic kidney disease, stage 3b; Z87.891 Personal history of nicotine dependence; Z20.822 Contact with and (suspected) exposure to COVID-19
CPT/HCPCS: 36415; 71045; 71275; 80053; 81001; 82550; 83605; 83690; 83880; 84484; 85025; 85380; 85610; 87040; 87077; 87086; 87088; 87147; 87181; 87186; 87637; 93005; 96361; 96365; 96367; 99284; A9270; J0456; J0696; J7120; Q9967

== ENCOUNTER 2024-11-20 11:01 | Outpatient (CLI) | payer MEDICARE, SELFPAY ==
--- NOTE | ~2024-11-20 | XR_ITS ---
EXAM/PROCEDURE: XR chest 2V - 11/20/2024 11:13 CDT HISTORY: 69 years old Female with J18.9 - Pneumonia, unspecified organism TECHNIQUE: Two view(s) of the chest. COMPARISON: None available. FINDINGS: LUNGS/ PLEURA: Left lung base consolidation and airspace opacities. Opacification of right lower lung zone may represent pleural effusion versus consolidation. HEART/ MEDIASTINUM: Heart appears normal in size. BONES: Degenerative changes. OTHER: Visualized upper abdomen is unremarkable. IMPRESSION: Left lung base consolidation and airspace opacities. Opacification of right lower lung zone may repre sent pleural effusion versus consolidation. Findings are concerning for pneumonia. Short-term follow- up chest radiograph is recommended after appropriate clinical therapy. Reviewed, dictated and finalized at location A. IMPRESSION: Left lung base consolidation and airspace opacities. Opacification of right low er lung zone may represent pleural effusion versus consolidation. Findings are concerning for pneumonia. Short-term follow-up chest radiograph is recommended after appropriate clinical therapy.
--- OUTSIDE RECORDS SUMMARY | 2024-11-20 11:06 | XMS_ITS | Clinical Summary ---
Author Organization [facility] Address [address] [place] [address] Care Team Providers Care Human Resources Vice President Name Role Phone Yuan Jimenez MD Primary Care Provider [phone] Source Comments [facility],non-owned Affiliates and Associated Physician Practices is amultiple site organization consisting of ambulatory clinics and hospital sitesin [place], [place], [place] and [place]. This disclosure is being madepursuant to the Care Everywhere program and may not contain all information available regarding this patient. Last updated 18.[facility] Allergies Active Allergy Reactions Criticality Noted Date [...] Active Cholecalcifero l (Vitamin D3) 1.25 MG (33071 UT) TABS Take 1 (one) tablet by [...] MEDICARE AWV CALENDAR YEAR 2024 INFLUENZA VACCINE (#1) 2025 01/27/2023 SCREENING FOR DIABETES 12/11/2025 12/11/2022 Respiratory Syncytial [...] 7 - 26 mg/dL 12/11/2022 1:30 PM [facility] Creatinine 1.40(H) 0.56 - 0.96 mg/dL 12/11/2022 1:30 PM [facility] Sodium 140 136 - 145 mmol/L 12/11/2022 1:30 PM [facility] Potassium 4.1 3.5 - 4.5 mmol/L 12/11/2022 1:30 PM [facility] Chloride 105 98 - 107 mmol/L 12/11/2022 1:30 PM [facility] CO2 27 22 - 29 mmol/L 12/11/2022 1:30 PM [facility] Glucose 81 70 - 115 mg/dL 12/11/2022 1:30 PM [facility] Calcium 10.1 8.4 - 10.2 mg/dL 12/11/2022 1:30 PM [facility] Protein Total 7.8 6.0 - 8.3 g/dL 12/11/2022 1:30 PM [facility] Albumin 3.6 3.4 - 5.0 g/dL 12/11/2022 1:30 PM [facility] Bilirubin Total 0.6 0.2 - 1.2 mg/dL 12/11/2022 1:30 PM [facility] Alkaline Phosphatase 106 40 - 150 U/L 12/11/2022 1:30 PM [facility] ALT 19 5 - 55 U/L 12/11/2022 1:30 PM [facility] AST 17 5 - 34 U/L 12/11/2022 1:30 PM [facility] Anion Gap 12 8 - 18 12/11/2022 1:30 PM CDT [facility] BUN/Creatinine Ratio 10 7 - 23 12/11/2022 1:30 PM CDT [facility] Osmolality Calculated 290 270 - 300 mOsm/kg 12/11/2022 1:30 PM CDT [facility] Albumin/Globulin Ratio 0.9(L) 1.1 - 2.3 12/11/2022 1:30 PM CDT [facility] eGFR by CKD-EPI 41(L) >=90 mL/min/1.7 3 m2 12/11/2022 1:30 PM CDT [facility] Blood BLOOD SPECIMEN / Unknown Lab Venipuncture / Unknown 12/11/2022 12:14 PM CDT 12/11/2022 1:04 PM CDT us Claude Abel MD LAB - CHEMISTRY ORDERABLES Final Result [facility] [address] [place] [address], [facility] [phone] from Last 3 Months or Most Recently Relevant to Health Maintenance Insurance [facility] MANAGED MEDICARE ADV Advance Directives * Full Code (Latest Code Status on File) Date Activated Date Inactivated Comments 12/25/2022 6:56 PM 12/26/2022 12:19 PM Care Teams Human Resources Vice President Relationship Specialty Start Date End Date Yuan Jimenez MD [address] [place] [address] PCP - General Family Medicine 12/04/22
--- OUTSIDE RECORDS SUMMARY | 2024-11-20 11:06 | XMS_ITS | Clinical Summary ---
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 Gender Identity Not on file Sexual [...] this topic Medical Devices Implanted Type Area Instrumentation Instructor Device Identifier Shelf Expiration Date Model / Serial / Lot [employer] Simplicity Delivery System Implanted:Qty: 1 on 08/29/2023 by Loren Devine MD at [facility] Right: Eye [employer] 06/20/2025 DCB00 / [id number] / [id number] [employer] Simplicity Delivery System Implanted:Qty: 1 on 09/26/2023 by Loren Devine MD at [facility] Left: Eye [employer] 01/25/2026 DCB00 / [id number] / [id number] Insurance [facility] Care Teams Associate Professor Of Biostatistics Relationship Specialty Start Date End Date Yuan Jimenez MD [address] [place] [address] PCP - General FAMILY PRACTICE 08/29/23
--- OUTSIDE RECORDS SUMMARY | 2024-11-20 11:06 | XMS_ITS | Encounter Summary ---
Author Organization 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
[2024-11-20 11:16] LABS: Hematocrit 37.2 % (35.0-42.0); Hemoglobin 11.6 g/dL (11.7-13.8); Immature Granulocyte Percent A 0.8 % (0.0-0.0); Lymphocytes Absolute Auto 1.38 K/mm3 (1.10-4.50); Mean Corpuscular HGB Conc 31.2 g/dL (32-36); Mean Corpuscular Hemoglobin 25.6 pg (27.0-31.0); Mean Corpuscular Volume 82.1 fL (78.0-102.0); Nucleated Red Blood Cells Absolute Auto 0.00 K/mm3 (0.00-0.00); Nucleated Red Blood Cells Perc 0.0 % (0-0.0); Platelet Count Result 384 K/mm3 (150-420); Red Blood Count 4.53 M/mm3 (4.20-5.40); White Blood Count 13.0 K/mm3 (4.8-10.8)
[2024-11-20 11:33] LABS: Alanine Aminotransferase 232 U/L (6-35); Albumin Level 3.6 g/dL (3.5-5.1); Alkaline Phosphatase 192 U/L (38-126); Anion Gap 7 mmol/L (4-12); Aspartate Amino Transferase 236 U/L (14-36); Bilirubin,Total 0.6 mg/dL (0.2-1.3); Blood Urea Nitrogen 10 mg/dL (7-17); Calcium 8.6 mg/dL (8.4-10.2); Carbon Dioxide 29 mmol/L (22-30); Chloride 102 mmol/L (98-107); Estimated Glomerular Filt Rate 45; Glucose 107 mg/dL (65-110); Osmolality Calculated 285 mOsm/kg (285-295); Potassium 3.8 mmol/L (3.4-5.0); Sodium 138 mmol/L (137-145); Total Protein 7.6 g/dL (6.3-8.2)
[2024-11-20 11:45] LABS: NT Pro B Type Natriuretic Pept 173 pg/mL (19.9-100); Troponin I < 0.012 ng/mL (0.000-0.034)
== END 2024-11-20 11:02 | disposition home or self-care (01) ==
LOC: CHSLAB 11:02
PROVIDERS: PCP Family Medicine; Visit Provider Family Medicine
DX: J18.9 Pneumonia, unspecified organism (principal); R91.8 Other nonspecific abnormal finding of lung field; R06.00 Dyspnea, unspecified
CPT/HCPCS: 36415; 71046; 80053; 83880; 84484; 85025